=== PATIENT | male | born 1980 ===

== ENCOUNTER 2018-07-10 01:04 | Emergency (ER) | payer SELFPAY ==
[2018-07-10 01:53] VITALS: BP 132/81
[2018-07-10] MEDS ORDERED: Albuterol-Ipratrop 3 mg / 0.5 (3 ml) UD INH STA (02:15)
--- NOTE | 2018-07-10 02:37 | ED PDOC ---
HPI: General Adult Time Seen by Provider: 07/10/18 02:15 Chief Complaint (Nursing): Cough, Cold, Congestion Chief Complaint (Provider): cough History Per: Patient (37 y/o male here with cough noted since last night dry hacking. Denies any fever/chills. States he is a nonsmoker.) Past Medical History Reviewed: Historical Data, Nursing Documentation, Vital Signs Vital Signs: Last Vital Signs Temp 98.6 F 07/10/18 01:39 Pulse 83 07/10/18 01:39 Resp 16 07/10/18 01:39 BP 132/81 07/10/18 01:39 Pulse Ox 96 07/10/18 01:39 - Family History Family History: States: Unknown Family Hx Denies: CAD, Diabetes, Hypertension - Immunization History Hx Tetanus Toxoid Vaccination: No Hx Influenza Vaccination: No - Home Medications Home Medications: Ambulatory Orders Medication Instructions Recorded Permethrin 5% [Permethrin 5% Cream] 60 gm EXT ONCE #1 tube 08/25/14 Amoxicillin 875 mg PO BID #14 tab 02/18/15 Ibuprofen [Motrin Tab] 800 mg PO Q8 PRN #20 tab 02/18/15 Naproxen [Naprosyn] 500 mg PO BID PRN #30 tab 07/11/15 Oseltamivir Phosphate [Tamiflu] 75 mg PO BID #10 cap 11/11/15 Albuterol HFA [Ventolin HFA 90 2 puff IH [id number] PRN #1 inhaler 07/10/18 mcg/actuation (8 g)] - Allergies Allergies/Adverse Reactions: Allergies Allergy/AdvReac Type Severity Reaction Status Date / Time No Known Allergies Allergy Verified 02/18/15 20:07 Review of Systems ROS Statement: Except As Marked, All Systems Reviewed And Found Negative Respiratory: Positive for: Cough Physical Exam - Reviewed Nursing Documentation Reviewed: Yes Vital Signs Reviewed: Yes - Physical Exam Appears: Positive for: Well, Non-toxic, No Acute Distress Head Exam: Positive for: ATRAUMATIC, NORMAL INSPECTION, NORMOCEPHALIC Skin: Positive for: Normal Color, Warm, DRY Eye Exam: Positive for: EOMI, Normal appearance, PERRL ENT: Positive for: Normal ENT Inspection Neck: Positive for: Normal, Painless ROM Cardiovascular/Chest: Positive for: Regular Rate, Rhythm Respiratory: Positive for: CNT, Normal Breath Sounds Gastrointestinal/Abdominal: Positive for: Normal Exam, Soft Back: Positive for: Normal Inspection Extremity: Positive for: Normal ROM Neurologic/Psych: Positive for: Alert, Oriented - ECG O2 Sat by Pulse Oximetry: 96 - Progress ED Course And Treament: DUONEB X 1 DOSE Disposition - Clinical Impression Clinical Impression: Cough - Patient ED Disposition Is Patient to be Admitted: No - Disposition Referrals: [facility] [Outside] Disposition: Routine/Home Disposition Time: 04:00 Condition: FAIR Prescriptions: Albuterol HFA [Ventolin HFA 90 mcg/actuation (8 g)] 2 puff IH [id number] PRN #1 inhaler PRN Reason: Cough Instructions: Cough in Adults Forms: [facility] ED School/Work Excuse Print Language: TANZANIAN
[2018-07-10] MEDS ORDERED: Albuterol-Ipratrop 3 mg / 0.5 (3 ml) UD ONE (02:50)
[2018-07-10 05:15] VITALS: PULSE 77; RESP 18; TEMP 98.3; O2SAT 98
== END 2018-07-10 04:25 | disposition home or self-care (01) ==
LOC: H.ER 01:04
DX: R05 Cough (principal)